=== PATIENT | female | born 1990 | race Caucasian/White ===

== ENCOUNTER → 2019-09-29 16:03 | Outpatient (BNVA) | payer MEDICAID, SELFPAY | PROVIDERS: Family Provider Nurse Practitioner Family; PCP Nurse Practitioner Family; Visit Provider Obstetrics & Gynecology | DX: T83.32XA Displacement of intrauterine contraceptive device, initial encounter (principal); Y84.8 Other medical procedures as the cause of abnormal reaction of the patient, or of later complication, without mention of misadventure at the time of the procedure | CPT/HCPCS: 81025 ==

== ENCOUNTER → 2019-10-11 09:57 | Outpatient (BNVA) | payer MEDICAID, SELFPAY | PROVIDERS: Family Provider Family Medicine; Referring Provider Obstetrics & Gynecology; Visit Provider Obstetrics & Gynecology | DX: T83.32XA Displacement of intrauterine contraceptive device, initial encounter (principal); N83.202 Unspecified ovarian cyst, left side; Y84.8 Other medical procedures as the cause of abnormal reaction of the patient, or of later complication, without mention of misadventure at the time of the procedure | CPT/HCPCS: 76830; 76856 ==

== ENCOUNTER → 2020-05-10 14:13 | Outpatient (BNVA) | payer MEDICAID, SELFPAY | PROVIDERS: Family Provider Family Medicine; Visit Provider Nurse Practitioner Family | DX: R10.2 Pelvic and perineal pain (principal) | CPT/HCPCS: 81000; 81025 ==

== ENCOUNTER 2020-05-13 13:42 | Outpatient (CLI) | payer MEDICAID, SELFPAY ==
--- NOTE | 2020-05-13 14:15 | US_ITS ---
WS: [id number] TRANSABDOMINAL PELVIC AND TRANSVAGINAL PELVIC ULTRASOUND HISTORY: pelvic pain, vomiting COMPARISON: 10/11/2019 Uterus: 9.0 cm x 5.7 cm x 3.1 cm. Normal size anteverted uterus. No fibroid or mass. Endometrium: 0.5 cm. Partially visualized IUD. Although not contiguously visualized it does appear to be in good position. Right ovary: 3.3 cm x 1.8 cm x 1.7 cm. Normal ovary with small follicles. Left ovary: 3.4 cm x 2.6 cm x 2.5 cm. Normal ovary with small follicles. Tiny amount of free fluid in the cul-de-sac. US/US pelvic with transvaginal IMPRESSION: 1. IUD present along the endometrial canal. 2. No adnexal cysts or masses.
[2020-05-13 15:19] LABS: Basophils % 0.7 %; Eosinophils # 0.1 10^3/uL (0.0-0.8); Eosinophils % 1.4 %; Hematocrit 44.1 % (37.0-47.0); Hemoglobin 14.3 g/dL (11.5-15.3); Lymphocytes # 1.4 10^3/uL (0.8-4.8); Mean Corpuscular HGB Conc 32.4 g/dL (30.0-36.0); Mean Corpuscular Volume 86.3 fL (81-99); Mean Platelet Volume 9.7 fL (7.4-10.4); Monocytes # 0.5 10^3/uL (0.2-0.9); Monocytes % 10.4 %; Neutrophils # 2.45 10^3/uL (1.8-7.7); Neutrophils % 55.5 %; Nucleated Red Blood Cells % 0 %; Platelet Count 213 10^3/cmm (130-400); Red Blood Count 5.11 10^6/uL (4.1-5.3); Red Cell Distribution Width 13.1 % (12.1-15.1); White Blood Count 4.4 10^3/uL (4.0-10.0)
[2020-05-13 15:39] LABS: Alanine Aminotransferase 9 U/L (0-33); Albumin Level 4.5 g/dL (3.5-5.2); Alkaline Phosphatase 59 IU/L (35-105); Aspartate Amino Transferase 13 U/L (0-32); Blood Urea Nitrogen 5 mg/dL (6-20); Carbon Dioxide 27 mmol/L (22-29); Chloride 103 mmol/L (98-107); Globulin 3.2 g/dL (1.3-4.6); Glomerular Filtration Rate 119.9 mL/min (90-130); Glucose 103 mg/dL (65-115); Osmolality Calculated 284 mOsm/kg (285-295); Sodium 139 mmol/L (136-145); Total Bilirubin 0.5 mg/dL (0.15-1.2); Total Protein 7.7 g/dL (6.6-8.7)
== END 2020-05-13 13:43 | disposition home or self-care (01) ==
LOC: RAD 13:49
PROVIDERS: Visit Provider Nurse Practitioner Family
DX: R10.2 Pelvic and perineal pain (principal); R11.10 Vomiting, unspecified; Z97.5 Presence of (intrauterine) contraceptive device
CPT/HCPCS: 76830; 76856; 80053; 85025

== ENCOUNTER → 2020-05-15 13:16 | Outpatient (BNVA) | payer MEDICAID, SELFPAY | PROVIDERS: Visit Provider Obstetrics & Gynecology | DX: Z11.59 Encounter for screening for other viral diseases (principal) | CPT/HCPCS: 87635 ==

== ENCOUNTER 2020-05-22 08:42 | Day surgery (SDC) | payer SELFPAY ==
[2020-05-21 10:50] VITALS: BMI 32.3
--- NOTE | 2020-05-21 11:16 | P.ANESASSM_ITS ---
Pre-Anesthetic Assessment Pre-Anesthetic Assessment: Height/Weight: Height 1.5 m Weight 72.575 kg Preop Diagnosis: Misplaced IUD Proposed Procedure: Operation Date: 05/22/20 14:40 Proposed Procedures p Hysteroscopic IUD Removal [id number] T83.32XA(Not Applicable) - González Moura MD Familial anesthetic complications: none Social: Social History: No alcohol and No tobacco Exam: Pre-Anes Outpt Exam: alert, oriented x 3, clear to auscultation bila terally and regular rate & rhythm Airway: Cervical ROM: WNL MP: 3 Dentition: Full Pulmonary: Comments: seasonal allergies Anesthetic Plan: ASA status: 1 Anesthesia: MAC Risk of > 500 ml blood loss (7ml/kg in children): No PFSH Anesthesia PFSH: Medical History (Updated 05/21/20 @ 10:23 by González Moura MD) IUD migration Family History Grandmother Hypertension maternal great great Stroke maternal great great Diabetes maternal great great Hyperlipidemia maternal great great Thyroid disease maternal great great Social History (Updated 05/21/20 @ 09:22 by Charlene Rodriguez RN) Smoking and tobacco status: former smoker Alcohol intake: never Substance/Drug Use: never Female Reproductive History: Date of last menstrual period: 04/23/20 Para: 2 Data Anesthesia CBC & Chem 7: 05/21/20 11:01 05/21/20 11:01 Cardiac Studies: No Data to Display
[2020-05-21 11:18] LABS: Basophils % 0.3 %; Eosinophils % 0.6 %; Hemoglobin 14.8 g/dL (11.5-15.3); Lymphocytes # 1.1 10^3/uL (0.8-4.8); Lymphocytes % 31.2 %; Mean Corpuscular HGB Conc 32.9 g/dL (30.0-36.0); Mean Corpuscular Volume 85.2 fL (81-99); Mean Platelet Volume 9.9 fL (7.4-10.4); Monocytes # 0.3 10^3/uL (0.2-0.9); Monocytes % 7.9 %; Neutrophils # 2.11 10^3/uL (1.8-7.7); Neutrophils % 59.7 %; Nucleated Red Blood Cells % 0 %; Platelet Count 202 10^3/cmm (130-400); Red Blood Count 5.28 10^6/uL (4.1-5.3); Red Cell Distribution Width 12.9 % (12.1-15.1); White Blood Count 3.5 10^3/uL (4.0-10.0)
[2020-05-21 11:20] LABS: OR HCG Qualitative Urine Negative (Negative)
[2020-05-21 11:36] LABS: Blood Urea Nitrogen 6 mg/dL (6-20); Calcium 9.6 mg/dL (8.5-10.5); Carbon Dioxide 24 mmol/L (22-29); Chloride 102 mmol/L (98-107); Glucose 88 mg/dL (65-115); Osmolality Calculated 285 mOsm/kg (285-295); Sodium 139 mmol/L (136-145)
[2020-05-21 11:44] LABS: Anion Gap 16.9 (5-19); Potassium 3.9 mmol/L (3.5-5.1)
[2020-05-21 11:46] LABS: Add Urine Microscopic? YES; Bilirubin Urine Neg (Negative); Blood Urine 3+ (Negative); Glucose Urine UA Norm (Normal); Ketones Urine Negative (Negative); Leukocyte Esterase Urine 1+ (Negative); Nitrate Urine Positive (Negative); Protein Urine Neg (Negative); Specific Gravity, Urine 1.005 (1.005-1.030); Urine Appearance Clear (CLEAR); Urine Color Straw (Yellow); Urobilinogen Urine Norm (Negative)
[2020-05-21 11:49] LABS: Add Urine Culture? Yes; Bacteria Urine TRACE /hpf; Mucus Urine TRACE /hpf; Squamous Epithelial Cell Urine 0-4 /hpf (0-5); WBC Urine 0-4 /hpf (0-5)
[2020-05-22] MEDS: ketorolac 30 mg/mL INJ IVP (09:33)
[2020-05-22] MEDS: gabapentin 300 mg Capsule PO (09:33)
[2020-05-22] MEDS: scopolamine 1.5 Patch 1 PATCH TRANSDERMA (09:34)
[2020-05-22] MEDS: sodium chloride 0.9% 1,000 ML 30 ML IV (09:35)
--- NOTE | 2020-05-22 09:43 | P.ANESUD_ITS ---
Pre-Anesthetic Update Pre-Anesthetic Assessment: Date of Surgery/Procedure: 05/22/20 Preop Enedelia gnosis: Misplaced IUD Proposed Procedure: Operation Date: 05/22/20 14:40 Proposed Procedures p Hysteroscopic IUD Removal [id number] T83.32XA(Not Applicable) - González Moura MD Any changes to Pre-Anesthetic Assessment?: No Last Intake: Intake Last Liquid Date 05/22/20 Last Liquid Time 23:00 Last Solid Date 05/21/20 Last Solid Time 23:00 Labs Last 48hrs: Laboratory Results - last 48 hr 05/21/20 05/21/20 05/21/20 11:01 11:01 11:01 WBC 3.5 L RBC 5.28 Hgb 14.8 Hct 45.0 MCV 85.2 MCH 28.0 MCHC 32.9 RDW 12.9 Plt Count 202 MPV 9.9 Neut % (Auto) 59.7 Lymph % (Auto) 31.2 [place] % (Auto) 7.9 Eos % (Auto) 0.6 Baso % (Auto) 0.3 Neut # (Auto) 2.11 Lymph # (Auto) 1.1 [place] # (Auto) 0.3 Eos # (Auto) 0.0 Baso # (Auto) 0.0 Nucleated RBC % (a uto) 0 Nucleated RBCs # 0.0 Sodium 139 Potassium 3.9 Chloride 102 Carbon Dioxide 24 Anion Gap 16.9 BUN 6 Creatinine 0.5 GFR Calculation 148.0 H Glucose 88 Calculated Osmolal ity 285 Calcium 9.6 Urine Color Urine Appearance Urine pH Ur Specific Gravit y Urine Protein Urine Glucose (UA) Urine Ketones Urine Blood Urine Nitrate Urine Bilirubin Urine Urobilinogen Ur Leukocyte Liudmila ase Urine RBC Urine WBC Ur Squamous Epith Cells Amorphous Sediment Urine Bacteria Urine Mucus Urine HCG, Qual Blood Type O Positive Rho(D) Type Positive Antibody Screen Negative 05/21/20 05/21/20 11:11 11:11 WBC RBC Hgb Hct MCV MCH MCHC RDW Plt Count MPV Neut % (Auto) Lymph % (Auto) [place] % (Auto) Eos % (Auto) Baso % (Auto) Neut # (Auto) Lymph # (Auto) [place] # (Auto) Eos # (Auto) Baso # (Auto) Nucleated RBC % (a uto) Nucleated RBCs # Sodium Potassium Chloride Carbon Dioxide Anion Gap BUN Creatinine GFR Calculation Glucose Calculated Osmolal ity Calcium Urine Color Straw Urine Appearance Clear Urine pH 5.0 Ur Specific Gravit y 1.005 Urine Protein Neg Urine Glucose (UA) Norm Urine Ketones Negative Urine Blood 3+ H Urine Nitrate Positive H Urine Bilirubin Neg Urine Urobilinogen Norm Ur Leukocyte Liudmila ase 1+ H Urine RBC 5-10 H Urine WBC 0-4 H Ur Squamous Epith Cells 0-4 H Amorphous Sediment Not Reportable Urine Bacteria Trace Urine Mucus Trace Urine HCG, Qual Negative Blood Type Rho(D) Type Antibody Screen Vitals: Pulse Rhythm 05/22/20 09:04 Pulse Strength 3+ Normal 05/22/20 09:04 Oxygen Delivery Me thod 05/22/20 09:04 Exam: Pre-Anes Outpt Exam: alert, oriented x 3, clear to auscultation bilaterally and regular rate & rhythm Cardiac Studies: No Data to Display
--- NOTE | 2020-05-22 11:34 | W.PM.OPSUD ---
Surgery/Procedure H&P Update DATE OF PROCEDURE: May 22, 2020 DATE H&P PERFORMED: 05/21/20 H&P UPDATE INFORMATION: I have reviewed H&P completed within last 30 days, I have examined patient prior to procedure and No changes to prior documentation PREOP DIAGNOSIS: Misplaced IUD PLANNED PROCEDURE: Operation Date: 05/22/20 14:40 Proposed Procedures p Hysteroscopic IUD Removal [id number] T83.32XA(Not Applicable) - González Moura MD
--- NOTE | 2020-05-22 12:23 | PM.OP ---
Operative Report Date of procedure: May 22, 2020 Pre-op Diagnosis: Misplaced IUD Post-op diagnosis: same Procedure Done: Hysteroscopic removal of IUD Surgeon: González Moura M.D. Anesthesia: General Estimated blood loss (mL): 5 IV fluids (mL): 600 Complications: None Findings: Mirena IUD in uterus strings curled up inside Condition: stable Disposition: PACU Procedure: After informed consent, the risks included but were not limited to bleeding, infection, injury to internal organs. The patient was counseled on a possible laparotomy and on the potential need for hysterectomy. The patient expressed understanding of the risks involved, all questions were answered, and the patient consented to the procedure. The patient was taken to the operating room where general anesthesia was administered. She was placed in the dorsal lithotomy position and prepped and draped in sterile fashion. A time out procedure was performed. The patient was examined under anesthesia and found to have a normal uterus with normal adnexa. A sterile speculum was placed in the vagina, and the anterior lip of cervix was grasped with the single toothed tenaculum. The uterus was then gently sounded to 9 cm, and the cervix was dilated with cervical dilators. A 2.7-cm hysteroscope advanced gently to the uterine fundus while visualizing the monitor. Survey of the uterine cavity showed: fundus normal Proliferative endometrium; The intrauterine system Mirena was identified. Hysteroscopic grasper was introduced and the strings were grasped and the IVUS was removed without complications. Hysteroscopy was reinserted. There was minimal bleeding noted and the tenaculum removed with goad hemostasis noted. The patient tolerated the procedure well. The patient was taken to the recovery area in stable condition.
[2020-05-22 12:25] VITALS: BP 101/65; PULSE 56; RESP 20; TEMP 36.4; O2SAT 98
--- NOTE | 2020-05-22 12:26 | SUR.PHASEI ---
1225 PATIENT TO PACU FROM OR. RR EVEN AND UNLABORED. PATIENT RESTING COMFORTABLE ON GURNEY, APPEARS IN NO PAIN.
[2020-05-22 12:30] VITALS: BP 108/64; PULSE 61; RESP 15; O2SAT 95
[2020-05-22 12:35] VITALS: BP 130/86; PULSE 98; RESP 16; O2SAT 97
[2020-05-22 12:40] VITALS: BP 123/75; PULSE 75; RESP 18; TEMP 37.2; O2SAT 96
--- NOTE | 2020-05-22 12:40 | ANE.PACU2 ---
Inpatient post-anesthesia follow up: Airway intact: Yes Vital signs: Temperature 97 F Pulse Rate 76 Respiratory Rate 18 Blood Pressure 116/73 Pulse Oximetry 98 Oxygen Delivery Me thod Room Air Oxygen Flow Rate Fraction of Inspir ed Oxygen Hydration adequate: Yes Nausea and vomiting: No Pain level: 1 Mental status: Baseline
--- NOTE | 2020-05-22 12:46 | SUR.PHASEI ---
1242 PATIENT TO OPS FROM PACU. DENIES PAIN. A/OX3. RR EVEN AND UNLABORED.
[2020-05-22 13:01] VITALS: BP 102/80; PULSE 97; RESP 18; TEMP 36.1; O2SAT 96
[2020-05-22 13:07] VITALS: BP 116/73; PULSE 76; RESP 18; O2SAT 98
== END 2020-05-22 13:40 | disposition home or self-care (01) ==
PROVIDERS: Visit Provider Obstetrics & Gynecology
PROC: 0UPD8HZ Removal of Contraceptive Device from Uterus and Cervix, Via Natural or Artificial Opening Endoscopic (ICD-10-PCS; CPT 58301; principal; 2020-05-22 10:30)
DX: T83.32XA Displacement of intrauterine contraceptive device, initial encounter (principal)
CPT/HCPCS: 58562; 12345; 36415; 51702; 80048; 81001; 81025; 84703; 85025; 86850; 86900; 87086; 88305; 96374; J0690; J1100; J1885; J2405; J2704; J3010; J7030

== ENCOUNTER 2023-10-29 09:00 | Outpatient (CLI) | payer MEDICAID, SELFPAY ==
--- NOTE | 2023-10-29 09:03 | US_ITS ---
WS: [id number] US pelv w/transvag [id number] HISTORY: LLQ ABDOMINAL PAIN COMPARISON: 05/13/2020 Uterus: 6.9 cm x 4.2 cm x 3.4 cm. Normal size anteverted uterus. No fibroid or mass. Endometrium: 0.5 cm. Normal. No increased vascularity. Right ovary: 2.9 cm x 3.6 cm x 1.6 cm. Normal size and vascularity, no cystic or solid masses. Small follicles. Left ovary: 2.9 cm x 2.8 cm x 1.6 cm. Normal size and vascularity, no cystic or solid masses. Small f ollicles. No free fluid in the cul-de-sac. IMPRESSION: Unremarkable pelvic ultrasound. Normal endometrium. No adnexal masses.
== END 2023-10-29 09:01 | disposition home or self-care (01) ==
LOC: RAD 09:01
PROVIDERS: Visit Provider Family Medicine
DX: R10.32 Left lower quadrant pain (principal)
CPT/HCPCS: 76830; 76856